=== PATIENT | male | born 1930 | race Caucasian/White ===

== ENCOUNTER 2016-04-10 12:08 | Emergency (ER) | payer MEDICARE, BC ==
[~2016-04-10] VITALS: Ht 175.3 cm; Wt 75.0 kg
[~2016-04-10 12:08] MED LIST: 00186-0372-20 IH; ASPIRIN 81M81 MG/TA2 PO; NORCO 325 MG-51 TAB PO; NORVASC 10MG10 MG PO; NORVASC 5MG5 MG/TAB; PRINIVIL20 MG PO; RT SPIRIVA18 MCG IH; ZESTRIL 5MG5 MG
[2016-04-10 12:10] VITALS: BP 144/65; PULSE 83; TEMP 98.1
[2016-04-10 13:20] LABS: BASO # 0.1 (0.0-0.2); BASO % 0.9 % (0.0-2.0); EOS # 0.3 (0.0-0.7); EOS % 1.9 % (0-4.0); GRAN % 72.3 % (42.2-75.2); HEMATOCRIT 32.7 % (42.0-52.0); HEMOGLOBIN 10.8 g/dl (13.5-18.0); LYMPH # 1.9 (1.2-3.4); LYMPH % 13.7 % (20.0-51.0); MEAN CELL VOLUME 86 fl (80.0-100.0); MEAN CORPUSCULAR HEMOGLOBIN 28 pg (27.0-31.0); MEAN CORPUSCULAR HGB CONC 33 g/dl (33.0-37.0); MEAN PLATELET VOLUME 10.6 fl (7.4-10.4); MONO # 1.5 (0.1-0.6); MONO % 10.8 % (1.7-9.3); PLATELET COUNT 323 K/mm3 (130-400); REDCELL DISTRIBUTION WIDTH-CV 14.1 % (11.5-14.5); WHITE BLOOD COUNT 13.8 K/mm3 (4.8-10.8)
[2016-04-10 13:29] LABS: ADJUSTED CALCIUM 9.4 mg/dL (8.4-10.2); ALBUMIN 3.7 gm/dL (3.5-5.0); BILIRUBIN,TOTAL 0.6 mg/dL (0.0-1.0); CALCIUM 9.2 mg/dL (8.4-10.2); CREATININE, serum 1.15 mg/dL (0.66-1.25); POTASSIUM 4.5 mmol/L (3.4-5.0); TOTAL PROTEIN 7.3 gm/dL (6.4-8.2)
[2016-04-10] MEDS ORDERED: ZITHROMAX Z PA250 MG PO (15:55)
[2016-04-10] MEDS ORDERED: PREDNISONE20 MG PO (15:55)
== END 2016-04-10 16:05 | disposition home or self-care (01) ==
LOC: COL.ER 12:08
PROVIDERS: Family Medicine
DX: J44.0 Chronic obstructive pulmonary disease with (acute) lower respiratory infection (principal); J20.9 Acute bronchitis, unspecified; J44.1 Chronic obstructive pulmonary disease with (acute) exacerbation; Z87.891 Personal history of nicotine dependence
CPT/HCPCS: J2930

== ENCOUNTER → 2017-08-28 | Outpatient (CLI) | payer MEDICARE, BC ==
[~2017-08-28] MED LIST changes: +PREDNISONE20 MG PO; +ZITHROMAX Z PA250 MG PO
== END ==
LOC: COL.RAD 09:34
DX: M25.552 Pain in left hip (principal)
CPT/HCPCS: J3301; Q9967

== ENCOUNTER → 2019-03-13 | Outpatient (CLI) | payer MEDICARE, BC | LOC: ZCOL.LAB 16:20 | DX: H92.11 Otorrhea, right ear (principal) ==